=== PATIENT | male | born 1970 | race Caucasian/White ===

== ENCOUNTER 2022-11-04 09:06 | Emergency (ER) | payer BC ==
[~2022-11-04] VITALS: Ht 190.5 cm; Wt 95.3 kg
[2022-11-04 09:15] VITALS: BP 119/77; PULSE 124; RESP 14; TEMP 97.5; O2SAT 99
--- NOTE | 2022-11-04 09:20 | NUR ---
PATIENT WAS WHEELCHAIR ASSISTED TO BED 4.
--- NOTE | 2022-11-04 09:27 | NUR ---
DR. HERMAN EVALUATING PATIENT AT BEDSIDE.
[2022-11-04] MEDS ORDERED: NACL 0.9% 500 ML IV ONE (09:30)
--- NOTE | 2022-11-04 09:41 | NUR ---
NS 1000ML BOLUS STARTED, WRIST BAND SCAN MISFUNCTION
--- NOTE | 2022-11-04 10:38 | NUR ---
PATIENT MOVED TO BED 10.
[2022-11-04] MEDS ORDERED: PROPOFOL 200 MG/20 ML VIAL IV ONE ×2 (10:39→11:05)
[2022-11-04] MEDS ORDERED: ADENOSINE 6 MG/2 ML VIAL IVP ONE (10:44)
--- NOTE | 2022-11-04 10:50 | NUR ---
PT PLACED ON COMBO PADS AND PLACED ON DEFIB.
[2022-11-04 10:52] LABS: ALBUMIN 4.5 g/dL (3.4-5.0); ANION GAP 16.3 (8-16); CARBON DIOXIDE 28.6 mmol/L (21-32); CREATININE 1.6 mg/dL (0.6-1.3); POTASSIUM 3.9 mmol/L (3.5-5.1); TOTAL BILIRUBIN 0.5 mg/dL (0.0-1.0)
--- NOTE | 2022-11-04 10:56 | NUR ---
PT CARDIOVERTED, NOW IN NSR. PT GCS 15
--- NOTE | 2022-11-04 10:57 | NUR ---
RN CALLED FOR RFS FOR PT THAT IS NEEDS TO BE CARDIOVERTED. PT SATURATIONS WITHIN NORMAL LIMITS DR, RN, AND RT AT BEDSIDE. RT ON STANDBY AND PLACED PT ON 2LNC & ECO2 MONITOR. PT IS STABLE AND WILL BE MONITORED BY RN
[2022-11-04] MEDS ORDERED: ASPIRIN 81 MG TAB.CHEW PO ONE (11:00)
[2022-11-04 11:28] LABS: BASOPHILS # (AUTO) 0.1 K/uL (0.00-0.22); BASOPHILS % (AUTO) 0.5 % (0.0-2.0); EOSINOPHILS # (AUTO) 0.1 K/uL (0-0.4); EOSINOPHILS % (AUTO) 0.6 % (0.0-4.0); HEMATOCRIT 48.2 % (36-52); HEMOGLOBIN 16.6 g/dL (12.0-18.0); LYMPHOCYTES # (AUTO) 1.6 K/uL (2.0-11.5); LYMPHOCYTES % (AUTO) 15.8 % (20.5-51.1); MEAN CORPUSCULAR HEMOGLOBIN 31 pg (27-31); MEAN CORPUSCULAR HGB CONC 35 g/dL (33-37); MEAN CORPUSCULAR VOLUME 91.1 fL (80-94); MONOCYTES # (AUTO) 0.9 K/uL (0.8-1.0); MONOCYTES % (AUTO) 9.1 % (1.7-9.3); NEUTROPHILS # (AUTO) 7.4 K/uL (1.8-7.7); PLATELET COUNT (AUTO) 321 K/uL (140-450); RED BLOOD CELL COUNT(AUTO) 5.29 MIL/uL (4.20-6.10); RED CELL DISTRIBUTION WIDTH 12.7 % (11.6-13.7); WHITE BLOOD COUNT (AUTO) 10.1 K/uL (4.8-10.8)
[2022-11-04 14:23] VITALS: BP 111/64; PULSE 71; RESP 17; O2SAT 98
--- NOTE | 2022-11-04 14:23 | NUR ---
Patient discharged with v/s stable. Written and verbal after care instructions given and explained. Patient verbalized understanding. Ambulatory with steady gait. All questions addressed prior to discharge. Advised to follow up with PMD.
== END 2022-11-04 14:23 | disposition home or self-care (01) ==
LOC: MED 09:06
DX: I48.20 Chronic atrial fibrillation, unspecified (principal); R77.8 Other specified abnormalities of plasma proteins; N17.9 Acute kidney failure, unspecified; Z79.899 Other long term (current) drug therapy
CPT/HCPCS: 36415; 71045; 80053; 83880; 84484; 85025; 85379; 92960; 93005; 96360; 99291; G0500; J2704; J7030; J0153